=== PATIENT | male | born 1975 | race Two or more races ===

== ENCOUNTER 2018-01-19 15:02 | Outpatient (CLI) | payer OTHER ==
--- NOTE | 2018-01-20 15:03 | MRI Report ---
Reason: LOCALIZED SWELLING, MASS LUMP RIGHT UPPER LIMB Procedure Date: 01/19/2018 Accession Number: [id number] / [id number] Procedure: MRI - Wrist RT W/O CPT Code: FULL RESULT: EXAM: RIGHT WRIST MRI WITHOUT CONTRAST EXAM DATE: 01/19/2018 04:02 PM. CLINICAL HISTORY: LOCALIZED SWELLING, MASS LUMP RIGHT UPPER LIMB. COMPARISON: None. TECHNIQUE: Multiplanar, multisequence T1-weighted and fluid-sensitive sequences of the wrist without contrast. Other: None. FINDINGS: Bones: No fractures or subluxations. No marrow edema. No bone lesions. Cartilage: The articular cartilage is unremarkable. The triangular fibrocartilage complex is unremarkable. Ligaments: The scapholunate and lunotriquetral ligaments are intact. The visualized other intrinsic, extrinsic and collateral ligaments are unremarkable. Tendons: The extensor compartment I through and flexor tendons are unremarkable. Musculature: No edema or fatty atrophy. Other: Mild anterior bowing of the flexor retinaculum, some swelling and increased T2 signal within the median nerve. Guyon canal appears unremarkable. Distal radial ulnar joint shows some arthritic change. Series 1001 image 31. There is a large multilocular cystic structure, low on T1, high on T2 immediately adjacent to the dorsal aspect of the carpal bones including the scaphoid, lunate, and capitate. This causes mild elevation and separation of the second and third extensor compartments. This is 1.1 cm from front to back by 1.8 cm from side to side by 1.4 cm from top to bottom. No joint effusions. The subcutaneous tissues are unremarkable. IMPRESSION: 1. No fractures, no erosive or destructive changes. TFCC appears intact. 2. Dominant feature is a focal multilocular ganglion cyst arising from the dorsal aspect of the carpal bones, closest to the scaphoid, lunate, and capitate articulation. 3. There also is some mild anterior bowing of the flexor retinaculum is some swelling of the median nerve. These MRI features can be seen in patients with carpal tunnel syndrome. [facility] MUSCULOSKELETAL RADIOLOGY SECTION
== END 2018-01-19 15:03 | disposition home or self-care (01) ==
LOC: DI 15:02
PROVIDERS: ATTEND General Practice
DX: M67.431 Ganglion, right wrist (principal)

== ENCOUNTER 2019-09-06 17:19 | Emergency (ER) | payer OTHER ==
[2019-09-06] MEDS ORDERED: PROPARACAINE 0.5% OPHTH DROPS 15 ML RIGHTEYE STA (17:30)
[2019-09-06] MEDS ORDERED: prednisoLONE 1% OPHTH DROPS 75 DROPS/5 ML BOTTLE RIGHTEYE STA (17:47)
--- NOTE | 2019-09-06 17:49 | ED Physician Documentation ---
PD HPI OPHTHO - Stated complaint Stated Complaint: RT EYE INJ - Chief complaint Chief Complaint: Heent - History obtained from History obtained from: Patient (2 days ago his 2-year-old son threw a toy and hit him in the right eye. Since then he has had photophobia and light sensitivity but without visual deficit or pain.) Review of Systems Constitutional: denies: Fever, Chills Eyes: denies: Loss of vision, Decreased vision Ears: denies: Loss of hearing, Ear pain Nose: denies: Rhinorrhea / runny nose, Congestion PD PAST MEDICAL HISTORY - Present Medications Home Medications: Ambulatory Orders Medication Instructions Recorded Confirmed prednisoLONE 1% OPHTH DROPS [Pred 1 drops OPTH BID #1 bottle 09/06/19 Forte 1% Ophth Drops] - Allergies Allergies/Adverse Reactions: Allergies Allergy/AdvReac Type Severity Reaction Status Date / Time Penicillins Allergy Unknown Verified 09/06/19 17:30 PD ED PE NORMAL - Vitals Vital signs reviewed: Yes - General General: Alert and oriented X 3, No acute distress - HEENT HEENT: Other (There is no fluorescein uptake, grossly his globe is normal with reactive pupil and soft globe. I am unable to appreciate any cell or flare. He still has photophobia after the administration of proparacaine) - Neuro Neuro: Alert and oriented X 3, Normal speech - Psych Psych: Normal mood, Normal affect Results - Vitals Vitals: Vital Signs - 24 hr 09/06/19 17:30 Temperature 36.6 C Heart Rate 81 Respiratory 16 Rate O2 Saturation 99 Oxygen O2 Source Room air PD MEDICAL DECISION MAKING - ED course ED course: 44-year-old gentleman was hit in the eye with a toy 2 days ago and now has photophobia without pain or visual deficit. No obvious iritis on examination but that is most consistent with his symptoms. There is no evidence of corneal abrasion or serious globe injury. Departure - Departure Disposition: 01 Home, Self Care Clinical Impression: Iritis, traumatic Condition: Good Record reviewed to determine appropriate education?: Yes Instructions: ED Iritis Prescriptions: prednisoLONE 1% OPHTH DROPS [Pred Forte 1% Ophth Drops] 1 drops OPTH BID #1 bottle Comments: Your symptoms are consistent with a mild case of traumatic iritis. The steroids should help. Return If worsening or if you develop any changes in your vision. [place].
[2019-09-06 18:05] VITALS: BP 136/93
== END 2019-09-06 18:24 | disposition home or self-care (01) ==
LOC: ED 17:19
DX: H20.9 Unspecified iridocyclitis (principal)
CPT/HCPCS: 99282; 99283; A9270; J3490